=== PATIENT | female | born 1935 | race Caucasian/White ===

== ENCOUNTER 2020-02-11 15:32 | Emergency (ER) | payer MEDICARE ==
[~2020-02-11] VITALS: Ht 170.2 cm; Wt 81.8 kg
[2020-02-11] MEDS ORDERED: CHOL400T56 PO (15:36)
[2020-02-11] MEDS ORDERED: AMLO-258 PO (15:36)
[2020-02-11] MEDS ORDERED: LISI-662 PO (15:36)
[2020-02-11] MEDS ORDERED: METO-558 PO (15:36)
[2020-02-11 16:22] LABS: BASOPHILS % (AUTO) 0.4 % (0.0-2.0); HEMOGLOBIN 12.7 g/dL (12.0-16.0); LYMPHOCYTES % (AUTO) 13.6 % (22.0-44.0); MEAN CORPUSCULAR HEMOGLOBIN 28.6 pg (26.0-34.0); MEAN CORPUSCULAR HGB CONC 34.2 G/dL (31.0-37.0); MEAN CORPUSCULAR VOLUME 84 fL (80-100); MONOCYTES # (AUTO) 0.6 K/uL (0.1-1.0); MONOCYTES % (AUTO) 8.2 % (2.0-9.0); NEUTROPHILS # (AUTO) 5.9 K/uL (1.8-7.7); NEUTROPHILS % (AUTO) 76.8 % (40.0-70.0); PLATELET COUNT (AUTO) 364 K/uL (150-450); RED BLOOD CELL COUNT(AUTO) 4.43 MIL/uL (4.00-5.20); RED CELL DISTRIBUTION WIDTH 13.2 % (11.5-14.5)
[2020-02-11 16:31] LABS: CALCIUM, TOTAL 9.8 mg/dL (8.8-10.5); CREATININE 0.95 mg/dL (0.60-1.30); POTASSIUM 4.5 mmol/L (3.5-5.1)
[2020-02-11 16:37] LABS: ALBUMIN 3.3 g/dL (3.4-5.0); BILIRUBIN,TOTAL 0.4 mg/dL (0.1-1.0); TOTAL PROTEIN, SERUM 7.6 g/dL (6.4-8.2)
[2020-02-11 16:48] LABS: INR 0.9 (0.9-1.1); PROTHROMBIN TIME 9.8 SEC (9.4-11.6)
[2020-02-11 17:46] VITALS: BP 136/70
== END 2020-02-11 17:46 | disposition home or self-care (01) ==
LOC: EMS 15:32
DX: U07.1 COVID-19 (principal); R05 Cough; R42 Dizziness and giddiness; E11.9 Type 2 diabetes mellitus without complications; I10 Essential (primary) hypertension; Z79.899 Other long term (current) drug therapy
CPT/HCPCS: 36415; 71045; 80053; 82550; 82962; 83880; 84484; 85025; 85610; 85730; 93005; 99285; U0003

== ENCOUNTER 2025-07-31 21:34 | Emergency (ER) | payer MEDICARE ==
[~2025-07-31] VITALS: Ht 162.6 cm; Wt 77.3 kg
[~2025-07-31 21:34] MED LIST: AMLO-258 PO; CHOL400T56 PO; LISI-894 PO; METO-325 PO
[2025-07-31 21:42] VITALS: TEMP 98.4
[2025-07-31 22:05] LABS: GLUCOMETER DEV NAME(LOC) ER.7; GLUCOSE,POINT OF CARE 161 MG/DL (70-110)
[2025-08-01 00:25] LABS: PLATELET COUNT (AUTO) 329 K/uL (150-450); RED BLOOD CELL COUNT(AUTO) 4.92 MIL/uL (4.00-5.20); RED CELL DISTRIBUTION WIDTH 14.1 % (11.5-14.5); WHITE BLOOD COUNT (AUTO) 17.5 K/uL (4.5-11.0)
[2025-08-01 00:28] LABS: CALCIUM, TOTAL 10.3 mg/dL (8.8-10.5); CREATININE 1.0 mg/dL (0.60-1.30); GLOMERULAR FILTR. RATE CALC 52.0 mL/min (>60); GLUCOSE,RANDOM 181.0 mg/dL (70-110); SODIUM SERUM 133.0 mmol/L (136-145); UREA NITROGEN, BLOOD 21.0 mg/dL (7-18)
[2025-08-01 00:41] LABS: APPEARANCE,URINE CLEAR (CLEAR); GLUCOSE, URINE (UA) NEGATIVE (NEGATIVE); LEUKOCYTE ESTERASE ,URINE NEGATIVE (NEGATIVE); NITRATE,URINE NEGATIVE (NEGATIVE); OCCULT BLOOD,URINE NEGATIVE (NEGATIVE); SPECIFIC GRAVITIY, URINE 1.011 (1.003-1.030)
[2025-08-01 01:36] VITALS: BP 156/93; PULSE 56; RESP 16; O2SAT 97
[2025-08-01 02:15] LABS: GLUCOMETER DEV NAME(LOC) ERT.7; GLUCOSE,POINT OF CARE 198 MG/DL (70-110)
== END 2025-08-01 02:39 | disposition home or self-care (01) ==
LOC: EMS 21:35
DX: E11.649 Type 2 diabetes mellitus with hypoglycemia without coma (principal); I10 Essential (primary) hypertension; E11.9 Type 2 diabetes mellitus without complications; Z98.890 Other specified postprocedural states; Z79.899 Other long term (current) drug therapy; Z85.9 Personal history of malignant neoplasm, unspecified
CPT/HCPCS: 71045; 80048; 81003; 82962; 83690; 85025; 99284; 36415-L1; 36415-TC